=== PATIENT | male | born 1945 | race African-American/Black ===

== ENCOUNTER 2023-11-29 20:04 | Emergency (ER) | payer OTHER ==
[2023-11-29 20:13] VITALS: BMI 41.9
[2023-11-29 23:56] LABS: HEMATOCRIT 44.3 % (35.4-49); HEMOGLOBIN 14.4 GM/dL (11.7-16.9); MCHC 32.6 g/dl (32.0-35.9); MEAN PLT VOLUME 9.1 fl (7.5-11.1); PLATELET COUNT 166 10^3/uL (134-434); RBC 4.66 M/mm3 (4.00-5.60); RDW 14.9 % (11.9-15.9); WHITE BLOOD COUNT 8.4 K/mm3 (4.0-10.0)
[2023-11-30 00:06] LABS: INR 1.06 (0.83-1.09); PROTHROMBIN TIME (PATIENT) 12.3 SEC (9.7-13.0)
[2023-11-30 00:08] LABS: ACTIVATED PTT 31.8 SECONDS (25.2-36.5)
[2023-11-30 00:15] LABS: POTASSIUM 4.3 mmol/L (3.5-5.1)
[2023-11-30 00:17] LABS: CALCIUM 8.7 mg/dL (8.5-10.1)
[2023-11-30 00:18] LABS: ALBUMIN 3.5 g/dl (3.4-5.0); BLOOD UREA NITROGEN 13.9 mg/dL (7-18)
[2023-11-30 00:23] LABS: BILIRUBIN,TOTAL 0.4 mg/dL (0.2-1); TOT PROT 8.1 g/dl (6.4-8.2)
[2023-11-30 07:01] VITALS: BP 149/61; PULSE 61; RESP 20; TEMP 97.8
== END 2023-11-30 08:54 | disposition home or self-care (01) ==
LOC: JER 20:04 → JERFT 20:04 → JER 11-30 08:54
DX: M79.652 Pain in left thigh (principal); M79.651 Pain in right thigh; M79.10 Myalgia, unspecified site; R07.89 Other chest pain
CPT/HCPCS: 36415; 71045-TC-FY; 75635-TC; 80053; 82550; 82553; 83880; 84484; 85027; 85610; 85730; 93005; 93010; 99285-25; Q9967

== ENCOUNTER 2024-01-24 20:00 | Emergency (ER) | payer OTHER ==
[2024-01-24 20:21] VITALS: BP 144/63; PULSE 65; RESP 18; TEMP 98.2; BMI 40.3
[2024-01-24 22:52] LABS: BASO % 0.6 % (0-2.0); EOS % 3.3 % (0-4.5); HEMATOCRIT 41.6 % (35.4-49); HEMOGLOBIN 14.1 GM/dL (11.7-16.9); LYMPH % 49.4 % (8-40); MCH 31.7 pg (25.7-33.7); MEAN CELL VOLUME 93.3 fl (80-96); MONO % 7.8 % (3.8-10.2); NEUT % 38.9 % (42.8-82.8); PLATELET COUNT 178 10^3/uL (134-434); RBC 4.46 M/mm3 (4.00-5.60); RDW 15.5 % (11.9-15.9); WHITE BLOOD COUNT 7.9 K/mm3 (4.0-10.0)
[2024-01-24 23:16] LABS: CALCIUM 8.8 mg/dL (8.5-10.1)
[2024-01-24 23:17] LABS: ALBUMIN 3.5 g/dl (3.4-5.0)
[2024-01-24 23:20] LABS: CREATININE 1.1 mg/dL (0.55-1.3)
[2024-01-24 23:21] LABS: BILIRUBIN,TOTAL 0.3 mg/dL (0.2-1); TOT PROT 8.1 g/dl (6.4-8.2)
== END 2024-01-24 23:31 | disposition home or self-care (01) ==
LOC: JER 20:00
DX: M79.605 Pain in left leg (principal); M79.89 Other specified soft tissue disorders
CPT/HCPCS: 36415; 80053; 83880; 85025; 93971-TC; 99284-25

== ENCOUNTER 2024-02-24 13:39 | Observation (INO) | payer OTHER ==
[2024-02-24 13:44] VITALS: BMI 40.3
[2024-02-24] MEDS ORDERED: ASPIRIN 81 MG CHEWABLE TABLETS PO ONE (13:58)
[2024-02-24 15:51] LABS: BASO % 0.3 % (0-2.0); EOS % 3.8 % (0-4.5); HEMATOCRIT 40.8 % (35.4-49); HEMOGLOBIN 13.6 GM/dL (11.7-16.9); LYMPH % 48.4 % (8-40); MCH 31.3 pg (25.7-33.7); MCHC 33.3 g/dl (32.0-35.9); MEAN PLT VOLUME 8.9 fl (7.5-11.1); NEUT % 36.5 % (42.8-82.8); PLATELET COUNT 170 10^3/uL (134-434); RBC 4.35 M/mm3 (4.00-5.60); RDW 15.1 % (11.9-15.9); WHITE BLOOD COUNT 7.1 K/mm3 (4.0-10.0)
[2024-02-24 15:59] LABS: INR 1.1 (0.83-1.09); PROTHROMBIN TIME (PATIENT) 12.7 SEC (9.7-13.0)
[2024-02-24 16:18] LABS: POTASSIUM 4.4 mmol/L (3.5-5.1)
[2024-02-24 16:20] LABS: CALCIUM 8.7 mg/dL (8.5-10.1)
[2024-02-24 16:21] LABS: ALBUMIN 3.4 g/dl (3.4-5.0); BLOOD UREA NITROGEN 16.8 mg/dL (7-18); MAGNESIUM 2.3 mg/dL (1.8-2.4)
[2024-02-24 16:24] LABS: CREATININE 0.9 mg/dL (0.55-1.3)
[2024-02-24 16:26] LABS: BILIRUBIN,TOTAL 0.4 mg/dL (0.2-1); TOT PROT 7.4 g/dl (6.4-8.2)
[2024-02-24] MEDS ORDERED: ASPIRIN 81 MG CHEWABLE TABLETS ONE (16:28)
[2024-02-24] MEDS: ASPIRIN 81 MG CHEWABLE TABLETS PO ONE (16:37)
[2024-02-24] MEDS ORDERED: ACETAMINOPHEN INJECTION 100 ML IVPB ONE (18:48)
[2024-02-24] MEDS ORDERED: MAG HYDROX/AL HYDROX/SIMETH 30 ML UNIT-DOSE CUP ONE (18:49)
[2024-02-24] MEDS ORDERED: FAMOTIDINE 20 MG/50 ML IVPB 20 MG/50 ML MG IVPB ONE (18:49)
[2024-02-24] MEDS ORDERED: ALBUTEROL SO4 HFA INHALER IH PRN (18:50)
[2024-02-24] MEDS ORDERED: LIDOCAINE 4% PATCH TP ONE (18:53)
[2024-02-24] MEDS ORDERED: NITROGLYCERIN SUBLINGUAL 1/150 0.4 MG TAB SL ONE (18:54)
[2024-02-24] MEDS: ACETAMINOPHEN 1000 MG/100 ML BAG IVPB ONE (18:56)
[2024-02-24] MEDS: MAG HYDROX/AL HYDROX/SIMETH 30 ML UNIT-DOSE CUP PO ONE (18:56)
[2024-02-24] MEDS: FAMOTIDINE 20 MG/50 ML IVPB 20 MG/50 ML MG IVPB ONE (18:57)
[2024-02-24] MEDS ORDERED: ACETAMINOPHEN 1000 MG/100 ML BAG IVPB PRN (19:46)
[2024-02-24] MEDS: GABAPENTIN 300 MG CAPSULE PO SCH (22:22)
[2024-02-24] MEDS: CARVEDILOL 25 MG TABLET (FP) PO SCH (22:22)
[2024-02-24] MEDS: BUDESONIDE/FORMETEROL FUMARATE 160/4.5 mcg INHALER IH SCH (22:50)
[2024-02-25] MEDS: LIDOCAINE PATCH REMOVAL MC SCH (06:34)
[2024-02-25 06:51] LABS: BASO % 0.3 % (0-2.0); EOS % 5.1 % (0-4.5); HEMATOCRIT 39.2 % (35.4-49); HEMOGLOBIN 12.8 GM/dL (11.7-16.9); LYMPH % 52.9 % (8-40); MCHC 32.7 g/dl (32.0-35.9); MEAN PLT VOLUME 9.4 fl (7.5-11.1); MONO % 10.9 % (3.8-10.2); NEUT % 30.8 % (42.8-82.8); PLATELET COUNT 160 10^3/uL (134-434); RBC 4.13 M/mm3 (4.00-5.60)
[2024-02-25 07:06] LABS: MAGNESIUM 2.2 mg/dL (1.8-2.4)
[2024-02-25 07:08] LABS: CALCIUM 8.4 mg/dL (8.5-10.1); PHOSPHOROUS 3.5 mg/dL (2.5-4.9)
[2024-02-25 07:09] LABS: BLOOD UREA NITROGEN 12.9 mg/dL (7-18); CREATININE 0.8 mg/dL (0.55-1.3); TOT PROT 6.8 g/dl (6.4-8.2)
[2024-02-25 07:10] LABS: BILIRUBIN,TOTAL 0.5 mg/dL (0.2-1)
[2024-02-25] MEDS ORDERED: PATIENT'S OWN MEDICATION (NON-FORMULARY) (Amiloride Hcl [Amiloride Hcl] 5 MG Tablet) PO SCH (10:00)
[2024-02-25] MEDS: ENOXAPARIN NA (PORCINE) 40 MG/0.4 ML DISP.SYRIN SQ SCH (11:04)
[2024-02-25] MEDS: LISINOPRIL 20 MG TABLET PO SCH (11:04)
[2024-02-25] MEDS: FOLIC ACID 1 MG TABLET (FP) PO SCH (11:05)
[2024-02-25 13:36] VITALS: BP 130/70; PULSE 82; RESP 18; TEMP 98.2
[2024-02-25] MEDS ORDERED: FUROSEMIDE 20 MG TABLET (FP) PO SCH (16:00)
[2024-02-28] MEDS ORDERED: METHOTREXATE 2.5 MG TABLET PO SCH (10:00)
== END 2024-02-25 14:40 | disposition short-term general hospital (02) ==
LOC: JER 13:39 → JERBED 16:43 → J4W 19:24
PROVIDERS: ADMIT Internal Medicine; ATTEND Internal Medicine
PROC: 3E033NZ Introduction of Analgesics, Hypnotics, Sedatives into Peripheral Vein, Percutaneous Approach (ICD-10-PCS; principal; 2024-02-24)
PROC: 3E033GC Introduction of Other Therapeutic Substance into Peripheral Vein, Percutaneous Approach (ICD-10-PCS; 2024-02-24)
PROC: 3E023GC Introduction of Other Therapeutic Substance into Muscle, Percutaneous Approach (ICD-10-PCS; 2024-02-24)
DX: I20.9 Angina pectoris, unspecified (principal); M06.9 Rheumatoid arthritis, unspecified; I11.0 Hypertensive heart disease with heart failure; R94.31 Abnormal electrocardiogram [ECG] [EKG]; R01.1 Cardiac murmur, unspecified; R07.89 Other chest pain
CPT/HCPCS: 36415; 71046-TC-FY; 80053; 80061; 82550; 83036; 83735; 83880; 84100; 84484; 85025; 85379; 85610; 85730; 87635; 93005; 93010; 93306-TC; 96365; 96372; 96375; 99285-25; G0378; J0131